=== PATIENT | male | born 1955 | race Two or more races ===

== ENCOUNTER 2023-11-21 21:24 | Emergency (ER) | payer OTHER ==
[~2023-11-21] VITALS: Ht 182.9 cm; Wt 85.0 kg
[2023-11-21] MEDS: SODIUM CHLORIDE 0.9% 1,000 ML IV ONE (22:16)
[2023-11-21] MEDS: ONDANSETRON HCL 4 MG/2 ML VIAL IV ONE (22:16)
[2023-11-21] MEDS: PROCHLORPERAZINE EDISYLATE 5 MG/ML 2ML VIAL IV ONE (22:20)
[2023-11-21] MEDS: THIAMINE 100mg/ml INJ (200mg/2ml VIAL) IV ONE (22:20)
[2023-11-21] MEDS: levETIRAcetam 1000 mg/100ml 100 ML IV ONE ×2 (22:31→22:34)
[2023-11-21] MEDS: MIDAZOLAM HCL 5 MG/ML-1ML VIAL IV ONE (22:32)
[2023-11-21] MEDS: ROCURONIUM 10MG/ML 10ML VIAL IV ONE ×2 (22:32→22:33)
[2023-11-21] MEDS: ETOMIDATE (2MG/ML) 20ML VIAL IV ONE (22:33)
[2023-11-21] MEDS: DOPamine 1600MCG/ML D5W 250 ML IV ONE (22:33)
[2023-11-21] MEDS: MIDAZOLAM HCL 5 MG/ML-1ML VIAL ONE (22:33)
[2023-11-21] MEDS: DOPamine 1600MCG/ML D5W 250 ML IV SCH (22:34)
[2023-11-21] MEDS: LABETALOL HCL 5 MG/ML 4ML SYRINGE IV ONE (22:41)
[2023-11-21] MEDS: MIDAZOLAM DRIP 50 mg/50mL 50 ML IV SCH (22:42)
[2023-11-21] MEDS: MIDAZOLAM DRIP 50 mg/50mL 50 ML IV ONE (22:53)
[2023-11-21] MEDS: LABETALOL HCL 20 MG/4 ML VL IV ONE (22:53)
[2023-11-21 22:56] VITALS: PULSE 97; RESP 18; O2SAT 97
[2023-11-21 23:17] VITALS: BP 178/98; PULSE 90; RESP 18; TEMP 97.8; O2SAT 91
[2023-11-21] MEDS: TETANUS-DIPTH-ACEL PERTUSSIS 0.5ML SYR Tdap IM ONE (23:18)
== END 2023-11-21 23:54 | disposition short-term general hospital (02) ==
LOC: ER 21:24 → EDBD 21:24 → ER 23:42
DX: S06.9XAA Unspecified intracranial injury with loss of consciousness status unknown, initial encounter (principal); I10 Essential (primary) hypertension; F10.129 Alcohol abuse with intoxication, unspecified; F17.210 Nicotine dependence, cigarettes, uncomplicated; Y90.9 Presence of alcohol in blood, level not specified; W11.XXXA Fall on and from ladder, initial encounter; Y93.89 Activity, other specified; Y92.89 Other specified places as the place of occurrence of the external cause; Y99.8 Other external cause status
CPT/HCPCS: 31500; 36415; 36600; 70450; 71045; 72125; 80320; 82805; 86850; 86900; 86901; 90471; 90715; 93005; 96374; 96375; 99291; J0780; J1265; J1953; J2250; J2405; J3411; J3490; J7030; 96361